=== PATIENT | female | born 1975 | race African-American/Black ===

== ENCOUNTER → 2021-09-06 13:39 | Outpatient (BNVA) | payer MEDICAID, SELFPAY | PROVIDERS: Family Provider Family Medicine; PCP Family Medicine; Referring Provider Surgery Vascular Surgery; Visit Provider Specialist | DX: R55 Syncope and collapse (principal); M43.6 Torticollis; G31.84 Mild cognitive impairment of uncertain or unknown etiology; M95.3 Acquired deformity of neck; Z79.899 Other long term (current) drug therapy | CPT/HCPCS: 99205 ==

== ENCOUNTER 2021-11-15 10:52 | Outpatient (CLI) | payer MEDICAID, SELFPAY ==
--- NOTE | 2021-11-15 11:00 | MR_ITS ---
WS: [id number] MRI BRAIN WITHOUT CONTRAST HISTORY: [id number] - Syncope and collapse COMPARISON: None available. TECHNIQUE: Diffusion imaging, multiplanar T1, T2 and FLAIR imaging obtained. No evidence for acute infarct or hemorrhage. Hawkins-white matter differentiation is normal. No prior infarcts. There are several subcortical small foci of increased T2 signal bilaterally in the frontal lobes consistent with small vessel ischemic disease. Normal appearance of the bertha and cereb ellum. Ventricles and extra-axial spaces are normal. No inferior displacement of cerebellar tonsils. The sella turcica and pituitary gland are unremarkabl e. Absent flow-void in the distal RIGHT vertebral artery. 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 Paranasal sinuses: Clear. Mastoid air cells: Normal. Calvarium and scalp: Intact. MR/MR head wo con* [id number] IMPRESSION: 1. No acute infarct or hydrocephalus. 2. Very minimal small vessel ischemic changes in the frontal lobe white matter .
== END 2021-11-15 10:53 | disposition home or self-care (01) ==
LOC: RAD 10:54
PROVIDERS: Family Provider Family Medicine; PCP Internal Medicine; Visit Provider Specialist
DX: R55 Syncope and collapse (principal)
CPT/HCPCS: 70551